=== PATIENT | female | born 1930 | race Caucasian/White ===

== ENCOUNTER → 2021-08-10 | Outpatient (CLI) | payer OTHER, BC | LOC: HYPER 08:19 | PROVIDERS: ATTEND Emergency Medicine | DX: L89.322 Pressure ulcer of left buttock, stage 2 (principal); R54 Age-related physical debility; M62.81 Muscle weakness (generalized); M13.80 Other specified arthritis, unspecified site; Z79.82 Long term (current) use of aspirin; Z79.899 Other long term (current) drug therapy; Z90.89 Acquired absence of other organs; Z90.12 Acquired absence of left breast and nipple; Z98.49 Cataract extraction status, unspecified eye ==